=== PATIENT | female | born 1980 | race Caucasian/White ===

== ENCOUNTER 2017-03-11 19:19 | Emergency (ER) | payer OTHER ==
[~2017-03-11] VITALS: Ht 170.2 cm; Wt 105.5 kg
[2017-03-11 19:21] VITALS: BP 129/78; PULSE 82; RESP 16; TEMP 98.9; O2SAT 99
[2017-03-11] MEDS ORDERED: SODIUM CHLOR 0.9% 1000 ML INJ 1,000 ML IV SCH (20:12)
[2017-03-11] MEDS ORDERED: ONDANSETRON HCL 4 MG/2 ML VIAL IVP ONE (20:15)
[2017-03-11] MEDS ORDERED: SODIUM CHLORIDE 0.9% FLUSH 10 ML FLUSH IV FLUSH PRN (20:15)
[2017-03-11 20:18] VITALS: O2SAT 99
--- NOTE | 2017-03-11 20:18 | PD ---
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 Oliveros. She presents for evaluation. For the past 3 days she has had general malaise, chills, nausea, dizziness and low- grade fever. Maximum temperature that she was able to record was 100.3 temporally. Symptoms have persisted which prompted evaluation today. She denies any headache, rash, chest pain or shortness of breath, cough or congestion, sore throat, ear pain, abdominal pain, diarrhea or constipation. She reports a past medical history of ulcerative colitis and anxiety. She has no other complaints at this time. [facility] Past Medical History Cardiovascular Problems: Yes (pericarditis at 14 years old) ?: Social History Alcohol Use: No Tobacco Use: No Allergies-Medications (Allergen,Severity, Reaction): Coded Allergies: Soma (Verified Allergy, Severe, 03/11/17) Reported Meds & Prescriptions Reported Meds & Active Scripts Active Zofran (Ondansetron HCl) 4 Mg Tab 4 Mg PO Q6HR PRN Keflex (Cephalexin) 500 Mg Cap 500 Mg PO Q12H 7 Days Reported Zoloft (Sertraline HCl) 100 Mg Tab 100 Mg PO DAILY Review of Systems Except as stated in HPI: all other systems reviewed are Neg Physical Exam Narrative GENERAL: Well-developed well-nourished female in no acute distress SKIN: Warm and dry. HEAD: Atraumatic. Normocephalic. EYES: Pupils equal and round. No scleral icterus. No injection or drainage. ENT: No nasal bleeding or discharge. Mucous membranes pink and moist. Tympanic hemorrhage appear normal. There is no oral pharyngeal erythema or exudate. NECK: Trachea midline. No JVD. No lymphadenopathy. Neck supple full range of motion. CARDIOVASCULAR: Regular rate and rhythm. No murmur appreciated. RESPIRATORY: No accessory muscle use. Clear to auscultation. Breath sounds equal bilaterally. GASTROINTESTINAL: Abdomen soft, non-tender, nondistended. Hepatic and splenic margins not palpable. MUSCULOSKELETAL: No obvious deformities. No clubbing. No cyanosis. No edema. NEUROLOGICAL: Awake and alert. No obvious cranial nerve deficits. Motor grossly within normal limits. Normal speech. PSYCHIATRIC: Appropriate mood and affect; insight and judgment normal. Data Data Last Documented VS Vital Signs Date Time Temp Pulse Resp B/P Pulse Ox O2 Delivery O2 Flow Rate FiO2 03/11/17 20:18 84 18 79 Room Air 03/11/17 19:21 98.9 129/78 Orders Complete Blood Count With Diff (03/11/17 20:12) Comprehensive Metabolic Panel (03/11/17 20:12) Urinalysis - C+S If Indicated (03/11/17 20:12) Iv Access Insert/Monitor (03/11/17 20:12) Ecg Monitoring (03/11/17 20:12) Oximetry (03/11/17 20:12) Ondansetron Inj (Zofran Inj) (03/11/17 20:15) Sodium Chlor 0.9% 1000 Ml Inj (Ns 1000 M (03/11/17 20:12) Sodium Chloride 0.9% Flush (Ns Flush) (03/11/17 20:15) Electrocardiogram (03/11/17 20:12) Chest, Single Ap (03/11/17 20:12) Influenzae A/B Antigen (03/11/17 20:12) Heart Tones (03/11/17 20:21) Labs Laboratory Tests Test 03/11/17 03/11/17 20:30 20:42 White Blood Count 7.7 TH/MM3 Red Blood Count 4.22 MIL/MM3 Hemoglobin 13.1 GM/DL Hematocrit 38.1 % Mean Corpuscular Volume 90.1 FL Mean Corpuscular Hemoglobin 31.0 PG Mean Corpuscular Hemoglobin 34.4 % Concent Red Cell Distribution Width 12.6 % Platelet Count 301 TH/MM3 Mean Platelet Volume 6.9 FL Neutrophils (%) (Auto) 65.8 % Lymphocytes (%) (Auto) 25.4 % Monocytes (%) (Auto) 5.4 % Eosinophils (%) (Auto) 3.1 % Basophils (%) (Auto) 0.3 % Neutrophils # (Auto) 5.0 TH/MM3 Lymphocytes # (Auto) 2.0 TH/MM3 Monocytes # (Auto) 0.4 TH/MM3 Eosinophils # (Auto) 0.2 TH/MM3 Basophils # (Auto) 0.0 TH/MM3 CBC Comment DIFF FINAL Differential Comment Sodium Level 137 MEQ/L Potassium Level 3.5 MEQ/L Chloride Level 104 MEQ/L Carbon Dioxide Level 24.6 MEQ/L Anion Gap 8 MEQ/L Blood Urea Nitrogen 7 MG/DL Creatinine 0.76 MG/DL Estimat Glomerular Filtration 86 ML/MIN Rate Random Glucose 109 MG/DL Calcium Level 8.8 MG/DL Total Bilirubin 0.2 MG/DL Aspartate Amino Transf 13 U/L (AST/SGOT) Alanine Aminotransferase 22 U/L (ALT/SGPT) Alkaline Phosphatase 52 U/L Total Protein 7.0 GM/DL Albumin 3.3 GM/DL Urine Color YELLOW Urine Turbidity HAZY Urine pH 6.0 Urine Specific [place] 1.011 Urine Protein NEG mg/dL Urine Glucose (UA) NEG mg/dL Urine Ketones NEG mg/dL Urine Occult Blood NEG Urine Nitrite NEG Urine Bilirubin NEG Urine Urobilinogen LESS THAN 2.0 MG/DL Urine Leukocyte Esterase SMALL Urine RBC 3 /hpf Urine WBC 3 /hpf Urine Squamous Epithelial 3 /hpf Cells Urine Amorphous Sediment RARE Urine Bacteria RARE /hpf Urine Mucus FEW /lpf Microscopic Urinalysis Comment CULT NOT INDICATED MDM Medical Decision Making Medical Screen Exam Complete: Yes Emergency Medical Condition: Yes Medical Record Reviewed: Yes Differential Diagnosis UTI, occult pneumonia, viral syndrome, influenza, meningitis, dehydration, electrolyte abnormality, hypoglycemia, symptomatic anemia Narrative Course 36 year old female who is 10 weeks is as for evaluation of 3 days of generalized malaise, nausea, dizziness, low-grade fevers with a maximum temperature 100.3. On initial examination she appears well, her vital signs are stable. There are no significant physical examination findings. Plan is for basic lab work, chest x-ray, influenza antigen, urinalysis. She'll be provided IV fluids and Zofran. The patient's lab work and imaging studies are reassuring. Chest x-ray reveals no evidence of pneumonia. Influenza antigen is negative. Urinalysis reveals small leukocytes, rare bacteria. Given her , she will be treated for bacteriuria with Keflex. Upon reexamination she does feel improved, her nausea resolved after the administration of Zofran. I suspect that her symptoms are related to a viral syndrome. She will be discharged with a short course of Zofran help with nausea. Diagnosis Primary Impression: Viral syndrome Additional Impression: Asymptomatic bacteriuria Additional Instructions: Medication as prescribed. Stay well hydrated and well-nourished, get plenty of rest. Follow-up with your primary care physician and decorating and assembly supervisor. Return for any acutely new or worsening symptoms. Med/Other Pt SpecificInfo: Prescription(s) given Scripts Ondansetron (Zofran)4 Mg Tab4 Mg PO Q6HR PRN (NAUSEA OR VOMITING) #15 TAB Ref 0 Prov:Lucho Pace MD 03/11/17 Cephalexin (Keflex)500 Mg Dfa226 Mg PO Q12H 7 Days Ref 0 Prov:Lucho Pace MD 03/11/17 Disposition: 01 DISCHARGE HOME Condition: Stable Garfield Marmolejo Mar 11, 2017 20:18
[2017-03-11] MEDS ORDERED: ZOLO100T PO (20:27)
--- NOTE | 2017-03-11 20:37 | RADRPT ---
EXAM DATE/TIME: 03/11/2017 20:10 [facility] COMPARISON: No previous studies available for comparison. INDICATIONS : Chest pain. MEDICAL HISTORY : None. SURGICAL HISTORY : None. ENCOUNTER: Initial ACUITY: 1 day PAIN SCORE: 0/10 LOCATION: Bilateral chest FINDINGS: A single view of the chest demonstrates the lungs to be symmetrically aerated without evidence of mas s, infiltrate or effusion. The heart is prominent suggesting left ventricular enlargement. Osseous structures are intact. CONCLUSION: The lungs are clear. Possible left ventricular enlargement. Elias Loyd MD on March 11, 2017 at 20:35 Board Certified Radiologist. This report was verified electronically.
[2017-03-11 20:49] LABS: BASOPHIL % 0.3 % (0.0-2.0); EOSINOPHIL # 0.2 TH/MM3 (0-0.4); EOSINOPHIL % 3.1 % (0.0-4.0); HEMATOCRIT 38.1 % (35.0-46.0); HEMO FLAGS DIFF FINAL; LYMPH % 25.4 % (9.0-44.0); MEAN CELL VOLUME 90.1 FL (80.0-100.0); MEAN CORPUSCULAR HGB CONC 34.4 % (32.0-36.0); MONO % 5.4 % (0.0-8.0); NEUT % 65.8 % (16.0-70.0); PLATELET COUNT 301 TH/MM3 (150-450); RED BLOOD COUNT 4.22 MIL/MM3 (4.00-5.30); RED CELL DISTRIBUTION WIDTH 12.6 % (11.6-17.2); WHITE BLOOD COUNT 7.7 TH/MM3 (4.0-11.0)
[2017-03-11 21:11] LABS: BACTERIA, URINE RARE /hpf; BLOOD, URINE NEG (NEG); COMMENT (UR) CULT NOT INDICATED; CULTURE IF INDICATED CULT NOT INDICATED; GLUCOSE,URINE NEG (NEG); KETONE, URINE NEG (NEG); MUCUS URINE FEW /lpf (OCC); NITRITE,URINE NEG (NEG); SQUAMOUS EPITHELIAL CELL URINE 3 /hpf (0-5); URINE COLOR YELLOW (YELLW/STRAW)
[2017-03-11 21:12] LABS: ANION GAP 8 MEQ/L (5-15); AST (GOT) 13 U/L (15-37); BICARBONATE 24.6 MEQ/L (21.0-32.0); BLOOD UREA NITROGEN 7 MG/DL (7-18); CHLORIDE 104 MEQ/L (98-107); GLOMERULAR FILTRATION RATE 86 ML/MIN (>89); POTASSIUM 3.5 MEQ/L (3.5-5.1); SODIUM (NA) 137 MEQ/L (136-145)
[2017-03-11 21:13] LABS: ALT (GPT) 22 U/L (10-53)
[2017-03-11 21:15] LABS: ALKALINE PHOSPHATASE 52 U/L (45-117); TOTAL BILIRUBIN ADULT 0.2 MG/DL (0.2-1.0)
[2017-03-11] MEDS ORDERED: ZOFR4TAB PO (21:22)
[2017-03-11] MEDS ORDERED: CEPH-460 PO (21:22)
[2017-03-11 22:45] VITALS: BP 123/63; PULSE 68; RESP 18; TEMP 98.1; O2SAT 100
--- NOTE | 2017-03-12 14:13 | EKG ---
Date Performed: 03/11/2017 Time Performed: 20:31:53 PTAGE: 36 years EKG: Sinus rhythm INCOMPLETE RIGHT BUNDLE BRANCH BLOCK BORDERLINE ECG Compared to prior tracing no significant change PREVIOUS TRACING : 10/25/2003 22.20 DOCTOR: Qamar Macedo Interpretating Date/Time 03/12/2017 14:10:44
[2017-03-21] MEDS ORDERED: OXYC1TAB63 PO (12:32)
[2017-03-21] MEDS ORDERED: DIAZ5 PO (12:37)
== END 2017-03-11 22:47 | disposition home or self-care (01) ==
LOC: NEPC 19:19
DX: O99.89 Other specified diseases and conditions complicating pregnancy, childbirth and the puerperium (principal); B34.9 Viral infection, unspecified; R82.71 Bacteriuria; R53.81 Other malaise; R11.0 Nausea; R42 Dizziness and giddiness; R50.9 Fever, unspecified; R94.31 Abnormal electrocardiogram [ECG] [EKG]; Z87.19 Personal history of other diseases of the digestive system; Z86.59 Personal history of other mental and behavioral disorders; Z3A.10 10 weeks gestation of pregnancy
CPT/HCPCS: 71010; 80053; 81001; 85025; 87804; 93005; 96374; 99285; J2405; J7030

== ENCOUNTER → 2017-03-21 | Day surgery (SDC) | payer OTHER ==
[~2017-03-21] VITALS: Ht 170.2 cm; Wt 104.3 kg
[~2017-03-21] MED LIST: *morphine SULFATE 8 MG/ML PERIprocedure ONLY ONE; ACETAMINOPHEN 1000 MG/100 ML VIAL IV ONE; CEPH-460 PO; CHLORHEXIDINE GLUCONATE 2 % 1 PACK (2 CLOTHS) TOPICAL PRN; DIAZ5 PO; DO NOT ADM ANY ANTICOAGULANT DRUGS PRN; FAMOTIDINE 20 MG/2 ML VIAL ONE; INSULIN HUMAN REGULAR 1,000 UNITS/10 ML VIAL SQ PRN; KETOROLAC TROMETHAMINE 60 MG/2 ML (IM) VIAL IM ONE; LACTATED RINGER'S 1000 ML IV PRN; LORazepam 2 MG/ML VIAL IV ONE; LORazepam 2 MG/ML VIAL ONE; METOPROLOL TARTRATE 25 MG TAB PO PRN; MIDAZOLAM HCL 2 MG/2 ML VIAL ONE; ONDANSETRON HCL 4 MG/2 ML VIAL IV PUSH ONE; OXYC1TAB63 PO; OXYTOCIN 10 UNIT/ML AMP ONE; POVIDONE IODINE 5% (ANTISEPSIS KIT) 4 APPLICATIONS EACH NARE PRN; PROPOFOL 200 MG/20 ML AMP IV ONE; SODIUM CHLORID 0.9% 500 ML IV PRN; ZOFR4TAB PO; ZOLO100T PO; oxyCODONE/ACETAMINOPHEN 5 MG/325 MG TAB PO PRN
[2017-03-21 09:39] VITALS: BP 140/79; PULSE 86; RESP 18; TEMP 98.1; O2SAT 97
[2017-03-21 10:10] LABS: AUTOMATED NEUTROPHIL # 4.6 TH/MM3 (1.8-7.7); BASOPHIL % 0.2 % (0.0-2.0); EOSINOPHIL # 0.2 TH/MM3 (0-0.4); EOSINOPHIL % 3.2 % (0.0-4.0); HEMATOCRIT 38.2 % (35.0-46.0); HEMO FLAGS DIFF FINAL; LYMPH % 21.4 % (9.0-44.0); LYMPHOCYTE # 1.4 TH/MM3 (1.0-4.8); MEAN CELL VOLUME 89.3 FL (80.0-100.0); MEAN CORPUSCULAR HEMOGLOBIN 30.9 PG (27.0-34.0); MEAN CORPUSCULAR HGB CONC 34.6 % (32.0-36.0); MONO % 5.6 % (0.0-8.0); NEUT % 69.6 % (16.0-70.0); PLATELET COUNT 280 TH/MM3 (150-450); RED BLOOD COUNT 4.27 MIL/MM3 (4.00-5.30); RED CELL DISTRIBUTION WIDTH 12.9 % (11.6-17.2); WHITE BLOOD COUNT 6.7 TH/MM3 (4.0-11.0)
--- NOTE | 2017-03-21 12:26 | PD.OP ---
Operative Report Date of Surgery: Mar 21, 2017 Preoperative Diagnosis: (1) Missed Postoperative Diagnosis: (1) Missed D&C with suction Procedure: D&C with suction Anesthesia: general Payne Surgeon: Jose Oliveros Factory Engineer(s): Jose Collins MD Mar 21, 2017 12:26
--- NOTE | 2017-03-21 12:32 | HHI.DCPOC ---
Discharge Care Plan Diagnosis: (1) Missed Report Symptoms to Your Doctor -Temperature above 100.5 degrees -Redness, of incision or excessive or foul smelling drainage -Unusual pain or calf pain -Increased vaginal bleeding -Painful or difficulty urinating -Feelings of extreme sadness or anxiety after 2 weeks Goals to Promote Your Health * To prevent worsening of your condition and complications * To maintain your health at the optimal level Directions to Meet Your Goals Take your medications as prescribed Follow your dietary instruction Follow activity as directed Ensure plenty of rest for recovery Drink fluids for hydration Keep your appointments as scheduled Take your immunizations and boosters as scheduled If your symptoms worsen call your PCP, if no PCP go to Urgent Care Center or Emergency Room Smoking is Dangerous to Your Health. Avoid second hand smoke Call the 24-hour crisis hotline for domestic abuse at Jose Oliveros MD Mar 21, 2017 12:32
[2017-03-21 14:18] VITALS: BP 111/61; PULSE 87; RESP 20; TEMP 98; O2SAT 97
--- NOTE | 2017-03-23 12:32 | MP ---
cc: BRIAN DIXON DATE OF SURGERY: 03/21/2017 PROCEDURE Dilatation and curettage, suction curette. PREOPERATIVE DIAGNOSIS Missed . POSTOPERATIVE DIAGNOSIS Missed . ESTIMATED BLOOD LOSS 200 ccs. COMPLICATIONS None. FINDINGS Products of conception in a 10-week size uterus. No adnexal masses. PROCEDURE IN DETAIL After informed consent, the patient was taken to the operating room where she was placed under epidural anesthesia, placed in the supine position, legs in the candy-cane stirrups. The abdomen, perineum and vagina were prepped and draped in normal sterile fashion. Time-out was taken for D&C with suction, correct patient and operative site was confirmed. After that a speculum was placed in the vagina. Cervix was grasped with single-tooth tenaculum, it was already dilated, had to be dilated just slightly from 6 mm to 8 mm to accommodate a 8-mm curette. We then suctioned all products of conception. Sharp curette was passed in all four quadrants until there was no remaining products of conception on the uterine bermudez and the suction curette was passed one last time. The patient tolerated the procedure well. She was taken to the recovery room in stable condition. Lap and instrument counts were reported as correct. The pathologist will save any tissue left over after processing to confirm intrauterine and that will be sent to the home per the patient's request. MD EFRA Boyle/EYAL /12:27 PM /12:21 PM
== END | disposition home or self-care (01) ==
LOC: HSDC 08:54
PROVIDERS: ATTEND Obstetrics & Gynecology
DX: O02.1 Missed abortion (principal)
CPT/HCPCS: 01965; 59820; 85025; 88305; J0131; J1885; J2250; J2270; J2405; J3010; J7120; J2060; J2590

== ENCOUNTER 2018-09-25 17:11 | Inpatient (IN) ==
[2018-09-25] MEDS ORDERED: Sod Chloride 0.9% Inj 1,000 ML IV.CONT PRN (18:20)
[2018-09-25] MEDS ORDERED: Sodium Chlor 0.9% Inj 500 ML IV.SIG PRN (18:20)
[2018-09-25] MEDS ORDERED: Naloxone Inj 0.4 MG/ML Vial IV.PUSH PRN (18:20)
[2018-09-25] MEDS ORDERED: Oxytocin 30 Units/500ml Premix 30 UNITS/500 ML BAG IV.SIG ONE (18:20)
[2018-09-25] MEDS ORDERED: Citric Acid/Sodium Citrate Liq 30 ML UDC PO SCH (18:30)
--- NOTE | 2018-09-25 18:31 | P.HPOB ---
History of Present Illness Primary Care Physician: No Primary Care Physician Chief Complaint: induction for oligo History of Present Illness: 38-year-old at 37 weeks and 5 days by her LMP consistent with a 8-week ultrasound with estimated due date of 10/11/2018. She is here as an induction for new finding of oligohydramnios, she was seen in outpatient setting today for routine OB visit during ultrasound to confirm position she was found to have oligohydramnios with an KENDRICK of 2.9 cm no MVP greater than 2. She was doing well, no complaints of contractions, headache, blurred vision or epigastric pain, she has reported increased blood pressures at home sometimes into the severe range of the 160 systolic, but he has never been confirmed as an outpatient. She has no history of hypertension outside of . Her has been complicated by advanced maternal age, normal anatomy and negative second trimester screening, anxiety, ulcerative colitis, tobacco use, obesity, migraines, reflux, and history of pericarditis at the age of 14. 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 - February 2003: Term at [place] weight 6.6 pounds. - November 2004: Term , and [place], weight 7.7 pounds - Inpatient Certification I certify that the inpatient services were ordered in accordance with Medicare regulations governing the order. This includes certification that hospital inpatient services are reasonable and necessary and in the case of services not specified as inpatient-only under 42 CFR 419.22(n), that they are appropriately provided as inpatient services in accordance to with the 2-midnight benchmark under 43 CFR 412.3(e) Estimated Total Length of Stay (Days): 3 Plans for Post Hospital Care: Home [facility] - History History Provided By: Patient - Medical History Medical History: Medical History (Last Reviewed 08/12/18 @ 15:19 by NITO Aguillon) Patient denies medical problems - Surgical History Surgical History: Surgical History (Last Reviewed 08/12/18 @ 15:19 by NITO Aguillon) No history of previous surgery - Tobacco History Second Hand Smoke Exposure: No Smoking Status: Never smoker Tobacco Type: Cigarettes - Alcohol History How Often Do You Have a Drink Containing Alcohol: Never - Substance Use History Substance History: No History of Abuse - Travel History History of Recent Travel: No Recent Travel in the [place] Within the Last 8 Weeks: No Recent Travel Out of the Country Within the Last 8 Weeks: No - Immunization History Hx Influenza Vaccine This Season: No Medications and Allergies Active Medications: Active Medications Calcium Gluconate (Calcium Gluconate Inj) 1 gm IV.PUSH PRN PRN PRN Reason: Magnesium toxicity Citric Acid/Sodium Citrate (Sodium Citrate/Citric Acid Liq) 30 ml PO SHINGLE INSPECTOR SURESH Stop: 09/29/18 18:29 Dinoprostone (Cervidil Vag Insert) 10 mg VAGINAL ONCE ONE Stop: 09/25/18 18:21 Fentanyl Citrate (Fentanyl Inj) 50 mcg IV.PUSH Q1H PRN PRN Reason: Pain Scale 3 - 5 Fentanyl Citrate (Fentanyl Inj) 100 mcg IV.PUSH Q1H PRN PRN Reason: PAIN SCALE 6 TO 10 Lactated Ringer's (Lr 1000 Ml Inj) 1,000 mls @ 3,000 mls/hr IV.SIG UNSCH PRN PRN Reason: compromise or epidural Sodium Chloride (Ns Inj) 500 mls @ 1,000 mls/hr IV.SIG UNSCH PRN PRN Reason: SEE LABEL COMMENTS Sodium Chloride (Ns Inj) 1,000 mls @ 100 mls/hr IV.CONT .Q10H PRN PRN Reason: SEE LABEL COMMENTS Oxytocin (Pitocin 30 Units/Ns 500 Ml Premix) 30 units in 500 mls @ 999 mls/hr IV.SIG BOLUS ONE Stop: 09/25/18 18:50 Lidocaine HCl (Xylocaine 1% Inj) 0.1 ml I-DERMAL PRN PRN PRN Reason: For IV start Stop: 09/28/18 18:19 Lidocaine HCl (Xylocaine 1% Inj) 10 ml INFILTRATN PRN PRN PRN Reason: For episiotomy repair Stop: 09/27/18 18:19 Mineral Oil (Muri-Lube Oil) 10 ml TOPICAL PRN PRN PRN Reason: PRN perineal massage Naloxone HCl (Narcan Inj) 0.1 mg IV.PUSH Q2M PRN PRN Reason: for opiate reversal Ondansetron HCl (Zofran Inj) 4 mg IV.PUSH Q6H PRN PRN Reason: NAUSEA OR VOMITING Sodium Chloride (Ns Flush) 2 ml IV.FLUSH BID SURESH Sodium Chloride (Ns Flush) 2 ml IV.FLUSH PRN PRN PRN Reason: FLUSH AFTER USING IV ACCESS Sodium Chloride (Ns Flush) 2 ml IV.FLUSH BID SURESH Sodium Chloride (Ns Flush) 2 ml IV.FLUSH PRN PRN PRN Reason: FLUSH AFTER USING IV ACCESS Allergies Allergy/AdvReac Type Severity Reaction Status Date / Time No Known Allergies Allergy Verified 09/25/18 18:25 Home Medications Medication Instructions Recorded Confirmed Type omeprazole 40 mg PO DAILY 09/25/18 09/25/18 History sertraline 100 mg PO DAILY 09/25/18 09/25/18 History Exam Vital signs: Vital Signs 09/25/18 17:28 Temperature 98.6 F Pulse Rate 109 H Respiratory Rate 18 Blood Pressure 126/91 H Intake & Output 09/24/18 09/25/18 09/25/18 18:59 06:59 18:59 Weight 101.151 kg Other: Weight On Admission 101.151 kg - Constitutional no acute distress - Routine HEENT Exam Head: Present: normocephalic Eye: Present: EOMI - Routine Neck Exam Present: supple - Routine Respiratory Exam Present: CTA bilaterally - Routine Cardiovascular Exam Present: RRR - Routine Abdominal Exam Present: soft - Routine Exam Comments: Normal external female genitalia, cervix 1-1.5 negative tomorrow cm, thick, -3 , posterior, medium - Routine Extremities Exam Present: full ROM - Routine Neurological Exam Present: oriented X3 - Additional findings Additional findings: heart rate, 130s-140s, moderate variability, no accelerations present, no decelerations Tocometry: Contractions appreciated. Results - Labs CBC & Chem 7: 09/25/18 17:35 09/25/18 17:35 Caprini VTE Risk Assessment Caprini VTE Risk Assessment: No/Low Risk (score <= 1) Caprini Risk Assessment Model: Point Value = 1 Point Value = 2 Point Value = 3 Point Value = 5 Age 41-60 Minor surgery BMI > 25 kg/m2 Swollen legs Varicose veins or History of unexplained or recurrent spontaneous Oral contraceptives or hormone replacement Sepsis (< 1 month) Serious lung disease, including pneumonia (< 1 month) Abnormal pulmonary function Acute myocardial infarction Congestive heart failure (< 1 month) History of inflammatory bowel disease Medical patient at bed rest Age 61-74 Arthroscopic surgery Major open surgery (> 45 min) Laparoscopic surgery (> 45 min) Malignancy Confined to bed (> 72 hours) Immobilizing plaster cast Central venous access Age >= 75 History of VTE Family history of VTE Factor V Leiden Prothrombin [id number] Lupus anticoagulant Anticardiolipin antibodies Elevated serum homocysteine Heparin-induced thrombocytopenia Other congenital or acquired thrombophilia Stroke (< 1 month) Elective arthroplasty Hip, pelvis, or leg fracture Acute spinal cord injury (< 1 month) Prophylaxis Regimen: Total Risk Factor Score Risk Level Prophylaxis Regimen 0-1 Low Early ambulation 2 Moderate Order ONE of the following: *Sequential Compression Device (SCD) *Heparin 5000 units SQ BID 3-4 Higher Order ONE of the following medications: *Heparin 5000 units SQ TID *Enoxaparin/Lovenox 40 mg SQ daily (WT < 150 kg, CrCl > 30 mL/min) *Enoxaparin/Lovenox 30 mg SQ daily (WT < 150 kg, CrCl > 10-29 mL/min) *Enoxaparin/Lovenox 30 mg SQ BID (WT < 150 kg, CrCl > 30 mL/min) AND/OR *Sequential Compression Device (SCD) 5 or more Highest Order ONE of the following medications: *Heparin 5000 units SQ TID (Preferred with Epidurals) *Enoxaparin/Lovenox 40 mg SQ daily (WT < 150 kg, CrCl > 30 mL/min) *Enoxaparin/Lovenox 30 mg SQ daily (WT < 150 kg, CrCl > 10-29 mL/min) *Enoxaparin/Lovenox 30 mg SQ BID (WT < 150 kg, CrCl > 30 mL/min) AND *Sequential Compression Device (SCD) Assessment and Plan - Plan 38-year-old at 37 weeks and 5 days by Neelam/Danielle (FRANCISCO 10/11/18) admitted for induction of labor secondary to new finding of oligohydramnios 1. Intrauterine : Category 1 tracing, continuous monitoring -Female "[place]", posterior placenta, estimated weight from ultrasound today 2735 g in the 27th percentile, abdominal circumference 6.5%, vertex via ultrasound. 2. Induction of labor: Secondary to #3. Montoya score unfavorable, nursing to place Place Cervidil, will allow to eat if reassuring tracing. Will remove Cervidil at after 112 hours or earlier if needed - GBS unknown, rapid GBS to be collected by nursing, Abx for ppx as indicated 3. Oligohydramnios: Likely due to placental insufficiency possible preeclampsia versus gestational hypertension, KENDRICK of 2.9 cm today. 4. Elevated blood pressures: No signs or symptoms of preeclampsia, will collect HELLP labs and urine protein creatinine ratio. Trend blood pressures, treat severe ranges and mag for any severe features. 5. Advanced maternal age: Quad screen negative, normal anatomy 6. Anxiety: Controlled with sertraline, continue home meds 7. Ulcerative colitis: Controlled without medications 8. Tobacco use: Encouraged cessation throughout her 9. History of pericarditis at the age of 14, status post pericardial window at that time, has no long-term sequelae from this 10. Obesity: Passed her 1 hour Glucola normal growth today.
[2018-09-25 18:40] LABS: Baso % (Auto) 0.2 % (0.0-2.0); Eos # (Auto) 0.1 th/mm3 (0.0-0.4); Eos % (Auto) 1.1 % (0.0-4.0); Hematocrit 41.5 % (35.0-46.0); Hemoglobin 14.6 gm/dL (11.6-15.3); Lymph # (Auto) 2.1 th/mm3 (1.0-4.8); Lymph % (Auto) 21.3 % (9.0-44.0); Mean Corpuscular HGB Conc 35.1 % (32.0-36.0); Mean Corpuscular Hemoglobin 31.5 pg (27.0-34.0); Mean Corpuscular Volume 89.8 fL (80.0-100.0); Mono # (Auto) 0.5 th/mm3 (0.0-0.9); Mono % (Auto) 5.2 % (0.0-8.0); Neut # (Auto) 7.2 th/mm3 (1.8-7.7); Neut % (Auto) 72.2 % (16.0-70.0); Platelet Count 294 th/mm3 (150-450); Red Blood Count 4.62 mil/mm3 (4.00-5.30); Red Cell Distribution Width 13.6 % (11.6-17.2)
[2018-09-25 18:44] LABS: Bacteria,Urine Rare /hpf; Bilirubin,Urine Negative (Negative); Clarity,Urine Clear (Clear); Color,Urine Yellow (Yellw/Straw); Glucose,Urine (UA) Negative (Negative); Leukocyte Esterase,Urine Negative (Negative); Nitrite,Urine Negative (Negative); Specific Gravity,Urine 1.006 (1.002-1.035)
[2018-09-25] MEDS ORDERED: fentaNYL Citrate Inj 100 MCG/2 ML Ampul IV.PUSH PRN (18:45)
[2018-09-25 18:48] LABS: Protein/Creatinine Ratio,Urine 0.23 (0.00-0.14); Total Protein,Urine Random 13.2 mg/dL (0-11.8)
[2018-09-25 19:02] LABS: Albumin 2.8 g/dL (3.4-5.0); Anion Gap 9 meq/L (5-15); Aspartate Aminotransferase 12 U/L (15-37); Blood Urea Nitrogen 8 mg/dL (7-18); Carbon Dioxide 21.7 meq/L (21.0-32.0); Chloride 106 meq/L (98-107); Glomerular Filtration Rate Greater Than 89 mL/min (>89); Glucose,Random 74 mg/dL (74-106); Sodium 137 meq/L (136-145)
[2018-09-25 19:04] LABS: Alanine Aminotransferase 17 U/L (10-53); Alkaline Phosphatase 182 U/L (45-117); Total Protein 7.1 g/dL (6.4-8.2)
[2018-09-26] MEDS: fentaNYL Citrate Inj 100 MCG/2 ML Ampul IV.PUSH PRN ×2 (00:23→03:10)
--- NOTE | 2018-09-26 09:59 | P.OBLABOR ---
Subjective Interval history: quiet night comfortable no leakage or bleeding GFM Objective Vital Signs: Vital Signs - 8 hr 09/26/18 02:30 09/26/18 03:30 09/26/18 04:15 Temperature Pulse Rate 74 79 Respiratory Rate 16 16 Blood Pressure 132/86 09/26/18 04:20 09/26/18 04:50 09/26/18 05:15 Temperature Pulse Rate 82 86 Respiratory Rate 16 16 Blood Pressure 09/26/18 05:20 09/26/18 05:45 09/26/18 05:50 Temperature 98.0 F 98.5 F Pulse Rate 81 Respiratory Rate 16 Blood Pressure 09/26/18 05:56 09/26/18 06:15 09/26/18 06:16 Temperature Pulse Rate 86 92 H Respiratory Rate 16 Blood Pressure 122/72 09/26/18 06:46 09/26/18 08:20 Temperature Pulse Rate 79 Respiratory Rate 16 18 Blood Pressure Objective: Pelvic Exam: strip category one /-1 ABIDA pelvis proven Patient Started Active Labor: Yes Medical Induction of Labor: Yes Artificial Rupture of Membrane: Yes Artificial ROM Date: 09/26/18 Artificial ROM Time: 09:58 Assessment and Plan - Plan 38-year-old at 37 weeks and 5 days by L/Danielle (FRANCISCO 10/11/18) admitted for induction of labor secondary to new finding of oligohydramnios 1. Intrauterine : Category 1 tracing, continuous monitoring -Female "[place]", posterior placenta, estimated weight from ultrasound today 2735 g in the 27th percentile, abdominal circumference 6.5%, vertex via ultrasound. 2. Induction of labor: Secondary to #3. Montoya score unfavorable, nursing to place Place Cervidil, will allow to eat if reassuring tracing. Will remove Cervidil at after 112 hours or earlier if needed - GBS unknown, rapid GBS to be collected by nursing, Abx for ppx as indicated 3. Oligohydramnios: Likely due to placental insufficiency possible preeclampsia versus gestational hypertension, KENDRICK of 2.9 cm today. 4. Elevated blood pressures: No signs or symptoms of preeclampsia, will collect HELLP labs and urine protein creatinine ratio. Trend blood pressures, treat severe ranges and mag for any severe features. 5. Advanced maternal age: Quad screen negative, normal anatomy 6. Anxiety: Controlled with sertraline, continue home meds 7. Ulcerative colitis: Controlled without medications 8. Tobacco use: Encouraged cessation throughout her 9. History of pericarditis at the age of 14, status post pericardial window at that time, has no long-term sequelae from this 10. Obesity: Passed her 1 hour Glucola normal growth today. 09/26/18 anticipate augment and epidural prn
[2018-09-26] MEDS ORDERED: fentaNYL 2MCG-Bupiv 0.125% Epi 150 ML EPIDURAL ONE (10:43)
[2018-09-26] MEDS: Sertraline 100 MG Tablet PO SCH (11:56)
[2018-09-26] MEDS ORDERED: fentaNYL 2MCG-Bupiv 0.125% Epi 150 ML EPIDURAL PRN (12:00)
[2018-09-26] MEDS ORDERED: Sodium Chlor 0.9% Inj 10 ML ONE (12:24)
[2018-09-26] MEDS ORDERED: Lidocaine PF 1% Inj 5 ML Vial ONE (12:24)
[2018-09-26] MEDS ORDERED: Oxytocin 30 Units/500ml Premix 30 UNITS/500 ML BAG IV.SIG PRN (12:39)
[2018-09-26] MEDS ORDERED: fentaNYL Citrate Inj 100 MCG/2 ML Ampul EPIDURAL ONE (13:00)
--- NOTE | 2018-09-26 15:02 | P.OBDELI ---
Patient Started Active Labor: Yes Medical Induction of Labor: Yes Artificial Rupture of Membrane: Yes Anesthesia: Epidural Episiotomy: none Vaginal Delivery: Normal Presentation: Occiput anterior Nuchal Cord: x1 Delayed Cord Clamping (45 sec): Yes Placenta: Spontaneous delivery, Intact, 3 vessel cord Laceration: None Estimated blood loss (mL): 200 : Female Infant Female A Infant Delivery Date: 09/26/18 Delivery Time: 15:02 score (1 min): 7 score (5 min): 9
[2018-09-26] MEDS ORDERED: Oxytocin 30 Units/500ml Premix 30 UNITS/500 ML BAG IV.CONT PRN (15:03)
[2018-09-26] MEDS ORDERED: Zolpidem Tartrate 5 MG Tablet PO PRN (15:03)
[2018-09-26] MEDS ORDERED: Witch Hazel 50%/Glyderin 12.5% 40 Pad Jar RECTAL PRN (15:03)
[2018-09-26] MEDS ORDERED: Naloxone Inj 0.4 MG/ML Vial IV.PUSH PRN (15:03)
[2018-09-26] MEDS ORDERED: Bisacodyl 10 MG Supp RECTAL PRN (15:03)
[2018-09-26] MEDS ORDERED: Benzocaine 20% Top Spray 60 ML Can TOPICAL PRN (15:03)
[2018-09-26] MEDS ORDERED: Measles/Mumps/Rubella Vaccine Inj 0.5 ML Vial SQ ONE (16:00)
[2018-09-26] MEDS ORDERED: Diphtheria/Tetanus/Pertussis Vaccine Inj 0.5 ML Syringe IM ONE (16:00)
[2018-09-26] MEDS: Acetaminophen 325 MG Tablet PO PRN (21:06)
[2018-09-26] MEDS: Senna/Docusate Sodium 8.6/50 MG Tablet PO SCH (21:06)
[2018-09-27] MEDS: Acetaminophen 325 MG Tablet PO PRN ×2 (03:16→19:46)
--- NOTE | 2018-09-27 07:50 | P.PNOB ---
Subjective Post day: 1 Interval history: Doing well, ambulating without difficulty, voiding spontaneously, vaginal bleeding less than menses. Objective Vital Signs/I&O: Vital Signs 09/26/18 08:20 09/26/18 10:33 09/26/18 10:34 Temperature 97.5 F L Pulse Rate 108 H Respiratory Rate 18 Blood Pressure 137/98 H 09/26/18 11:07 09/26/18 11:11 09/26/18 11:20 Temperature Pulse Rate 81 75 84 Respiratory Rate Blood Pressure 136/93 H 137/83 139/84 09/26/18 11:26 09/26/18 11:51 09/26/18 12:11 Temperature Pulse Rate 110 H 92 H 91 H Respiratory Rate Blood Pressure 126/101 H 128/72 129/74 09/26/18 12:35 09/26/18 12:46 09/26/18 13:00 Temperature 98.3 F Pulse Rate 79 81 Respiratory Rate 16 Blood Pressure 133/75 131/69 09/26/18 13:01 09/26/18 13:16 09/26/18 13:31 Temperature Pulse Rate 91 H 73 83 Respiratory Rate Blood Pressure 131/79 131/69 125/64 09/26/18 13:45 09/26/18 14:15 09/26/18 14:30 Temperature Pulse Rate 99 H 84 92 H Respiratory Rate Blood Pressure 113/69 129/81 132/90 09/26/18 14:46 09/26/18 14:55 09/26/18 15:01 Temperature Pulse Rate 118 H 90 Respiratory Rate 18 Blood Pressure 137/105 H 139/81 09/26/18 15:10 09/26/18 15:25 09/26/18 15:40 Temperature Pulse Rate Respiratory Rate 17 17 17 Blood Pressure 09/26/18 15:53 09/26/18 18:30 Temperature 98.1 F Pulse Rate 78 Respiratory Rate 17 18 Blood Pressure 138/73 Result Diagrams: 09/25/18 17:35 09/25/18 17:35 Objective Remarks: GENERAL: Well-nourished, well-developed patient. CARDIOVASCULAR: Regular rate and rhythm without murmurs, gallops, or rubs. RESPIRATORY: Breath sounds equal bilaterally. No accessory muscle use. ABDOMEN/GI: Abdomen soft, non-tender. Fundus: Firm, non-tender at umbilicus. GENITOURINARY: Light to moderate bleeding. EXTREMITIES: No cyanosis or edema, non-tender, without signs of DVT. Medications and IVs: Active Medications Acetaminophen (Tylenol) 650 mg PO Q4H PRN PRN Reason: PAIN SCALE 1 TO 2 Last Admin: 09/27/18 03:16 Dose: 650 mg Al Hydroxide/Mg Hydroxide (Milk Of Magnesia Liq) 30 ml PO Q12H PRN PRN Reason: Mild Constipation Benzocaine (Americaine 20% Top [place]) 1 spray TOPICAL Q4H PRN PRN Reason: For Perineum Discomfort Bisacodyl (Dulcolax Supp) 10 mg RECTAL DAILY PRN PRN Reason: SEVERE CONSITIPATION Calcium Gluconate (Calcium Gluconate Inj) 1 gm IV.PUSH PRN PRN PRN Reason: Magnesium toxicity Citric Acid/Sodium Citrate (Sodium Citrate/Citric Acid Liq) 30 ml PO TREATER HELPER [facility] Stop: 09/29/18 18:29 Ephedrine Sulfate (Ephedrine/Ns Syringe) 10 mg IV.PUSH UNSCH PRN PRN Reason: SEE LABEL COMMENTS Stop: 09/27/18 12:00 Fentanyl Citrate (Fentanyl Inj) 50 mcg IV.PUSH Q1H PRN PRN Reason: Pain Scale 3 - 5 Fentanyl Citrate (Fentanyl Inj) 100 mcg IV.PUSH Q1H PRN PRN Reason: PAIN SCALE 6 TO 10 Last Admin: 09/26/18 03:10 Dose: 100 mcg Lactated Ringer's (Lr 1000 Ml Inj) 1,000 mls @ 3,000 mls/hr IV.SIG UNSCH PRN PRN Reason: compromise or epidural Last Admin: 09/26/18 12:52 Dose: 3,000 mls/hr Sodium Chloride (Ns Inj) 500 mls @ 1,000 mls/hr IV.SIG UNSCH PRN PRN Reason: SEE LABEL COMMENTS Sodium Chloride (Ns Inj) 1,000 mls @ 100 mls/hr IV.CONT .Q10H PRN PRN Reason: SEE LABEL COMMENTS Lactated Ringer's (Lr 1000 Ml Inj) 1,000 mls @ 125 mls/hr IV.SIG .Q8H [facility] Last Admin: 09/26/18 06:28 Dose: 125 mls/hr Fentanyl/Bupivacaine/Sodium Chlor (Fentanyl 2 Mcg-Bupiv 0.125% Epi) 150 mls @ 12 mls/hr EPIDURAL PRN PRN PRN Reason: for Labor Pain Last Admin: 09/26/18 12:53 Dose: 12 mls/hr Oxytocin (Pitocin 30 Units/Ns 500 Ml Premix) 30 units in 500 mls @ 2 mls/hr IV.SIG TITRATE PRN; Protocol PRN Reason: For induction of labor Last Admin: 09/26/18 12:52 Dose: 2 milliunit/min, 2 mls/hr Oxytocin (Pitocin 30 Units/Ns 500 Ml Premix) 30 units in 500 mls @ 100 mls/hr IV.CONT UNSCH PRN PRN Reason: Heavy bleeding Ibuprofen (Motrin) 800 mg PO Q8H PRN PRN Reason: For Cramping Last Admin: 09/27/18 03:16 Dose: 800 mg Lactulose (Lactulose Liq) 30 ml PO DAILY PRN PRN Reason: SEVERE CONSITIPATION Lidocaine HCl (Xylocaine 1% Inj) 0.1 ml I-DERMAL PRN PRN PRN Reason: For IV start Stop: 09/28/18 18:19 Lidocaine HCl (Xylocaine 1% Inj) 10 ml INFILTRATN PRN PRN PRN Reason: For episiotomy repair Stop: 09/27/18 18:19 Mineral Oil (Muri-Lube Oil) 10 ml TOPICAL PRN PRN PRN Reason: PRN perineal massage Naloxone HCl (Narcan Inj) 0.1 mg IV.PUSH Q2M PRN PRN Reason: for opiate reversal Naloxone HCl (Narcan Inj) 0.1 mg IV.PUSH Q2M PRN PRN Reason: for opiate reversal Ondansetron HCl (Zofran Inj) 4 mg IV.PUSH Q6H PRN PRN Reason: NAUSEA OR VOMITING Ondansetron HCl (Zofran Odt) 4 mg PO Q6H PRN PRN Reason: NAUSEA OR VOMITING Pantoprazole Sodium (Protonix) 40 mg PO DAILY [facility] Last Admin: 09/26/18 11:56 Dose: Not Given Senna/Docusate Sodium (Cynthia-Colace) 1 tab PO BID [facility] Last Admin: 09/26/18 21:06 Dose: 1 tab Sennosides (Senokot) 17.2 mg PO Q12H PRN PRN Reason: Moderate Constipation Sertraline HCl (Zoloft) 100 mg PO DAILY [facility] Last Admin: 09/26/18 11:56 Dose: Not Given Sodium Chloride (Ns Flush) 2 ml IV.FLUSH BID [facility] Last Admin: 09/26/18 21:07 Dose: 2 ml Sodium Chloride (Ns Flush) 2 ml IV.FLUSH PRN PRN PRN Reason: FLUSH AFTER USING IV ACCESS Sodium Chloride (Ns Flush) 2 ml IV.FLUSH BID [facility] Last Admin: 09/26/18 21:07 Dose: Not Given Sodium Chloride (Ns Flush) 2 ml IV.FLUSH PRN PRN PRN Reason: FLUSH AFTER USING IV ACCESS Witch Megan/Glycerin (Tucks Pads) 1 applicatio RECTAL QID PRN PRN Reason: HEMORRHOIDS Zolpidem Tartrate (Ambien) 5 mg PO HS PRN PRN Reason: SLEEP Assessment and Plan - Plan 38-year-old s/p at 37 weeks and 6 days was IOL for oligohydramnios 1. PPD #1: AF, VSS, ready for d/c home, discussed precautions expectations and follow-up. -Female 2. Anxiety: Controlled with sertraline, continue home meds
[2018-09-27] MEDS: Sertraline 100 MG Tablet PO SCH (08:23)
[2018-09-27] MEDS: Senna/Docusate Sodium 8.6/50 MG Tablet PO SCH (08:23)
[2018-09-28] MEDS: Senna/Docusate Sodium 8.6/50 MG Tablet PO SCH ×2 (03:27→11:54)
[2018-09-28] MEDS: Acetaminophen 325 MG Tablet PO PRN ×2 (03:30→11:53)
--- NOTE | 2018-09-28 05:22 | P.PNOB ---
Subjective Post day: 2 Interval history: no changes, desires d/c home today Objective Vital Signs/I&O: Vital Signs 09/27/18 08:00 09/27/18 20:00 Temperature 97.5 F L 98.3 F Pulse Rate 75 72 Respiratory Rate 18 18 Blood Pressure 129/85 140/80 Result Diagrams: 09/25/18 17:35 09/25/18 17:35 Objective Remarks: GENERAL: Well-nourished, well-developed patient. CARDIOVASCULAR: Regular rate and rhythm without murmurs, gallops, or rubs. RESPIRATORY: Breath sounds equal bilaterally. No accessory muscle use. ABDOMEN/GI: Abdomen soft, non-tender. Fundus: Firm, non-tender at umbilicus. GENITOURINARY: Light to moderate bleeding. EXTREMITIES: No cyanosis or edema, non-tender, without signs of DVT. Medications and IVs: Active Medications Acetaminophen (Tylenol) 650 mg PO Q4H PRN PRN Reason: PAIN SCALE 1 TO 2 Last Admin: 09/28/18 03:30 Dose: 650 mg Al Hydroxide/Mg Hydroxide (Milk Of Magnesia Liq) 30 ml PO Q12H PRN PRN Reason: Mild Constipation Benzocaine (Americaine 20% Top [place]) 1 spray TOPICAL Q4H PRN PRN Reason: For Perineum Discomfort Bisacodyl (Dulcolax Supp) 10 mg RECTAL DAILY PRN PRN Reason: SEVERE CONSITIPATION Calcium Gluconate (Calcium Gluconate Inj) 1 gm IV.PUSH PRN PRN PRN Reason: Magnesium toxicity Citric Acid/Sodium Citrate (Sodium Citrate/Citric Acid Liq) 30 ml PO GEOPHYSICAL MANAGER [facility] Stop: 09/29/18 18:29 Fentanyl Citrate (Fentanyl Inj) 50 mcg IV.PUSH Q1H PRN PRN Reason: Pain Scale 3 - 5 Fentanyl Citrate (Fentanyl Inj) 100 mcg IV.PUSH Q1H PRN PRN Reason: PAIN SCALE 6 TO 10 Last Admin: 09/26/18 03:10 Dose: 100 mcg Lactated Ringer's (Lr 1000 Ml Inj) 1,000 mls @ 3,000 mls/hr IV.SIG UNSCH PRN PRN Reason: compromise or epidural Last Admin: 09/26/18 12:52 Dose: 3,000 mls/hr Sodium Chloride (Ns Inj) 500 mls @ 1,000 mls/hr IV.SIG UNSCH PRN PRN Reason: SEE LABEL COMMENTS Sodium Chloride (Ns Inj) 1,000 mls @ 100 mls/hr IV.CONT .Q10H PRN PRN Reason: SEE LABEL COMMENTS Lactated Ringer's (Lr 1000 Ml Inj) 1,000 mls @ 125 mls/hr IV.SIG .Q8H [facility] Last Admin: 09/26/18 06:28 Dose: 125 mls/hr Fentanyl/Bupivacaine/Sodium Chlor (Fentanyl 2 Mcg-Bupiv 0.125% Epi) 150 mls @ 12 mls/hr EPIDURAL PRN PRN PRN Reason: for Labor Pain Last Admin: 09/26/18 12:53 Dose: 12 mls/hr Oxytocin (Pitocin 30 Units/Ns 500 Ml Premix) 30 units in 500 mls @ 2 mls/hr IV.SIG TITRATE PRN; Protocol PRN Reason: For induction of labor Last Admin: 09/26/18 12:52 Dose: 2 milliunit/min, 2 mls/hr Oxytocin (Pitocin 30 Units/Ns 500 Ml Premix) 30 units in 500 mls @ 100 mls/hr IV.CONT UNSCH PRN PRN Reason: Heavy bleeding Ibuprofen (Motrin) 800 mg PO Q8H PRN PRN Reason: For Cramping Last Admin: 09/28/18 03:30 Dose: 800 mg Lactulose (Lactulose Liq) 30 ml PO DAILY PRN PRN Reason: SEVERE CONSITIPATION Lidocaine HCl (Xylocaine 1% Inj) 0.1 ml I-DERMAL PRN PRN PRN Reason: For IV start Stop: 09/28/18 18:19 Mineral Oil (Muri-Lube Oil) 10 ml TOPICAL PRN PRN PRN Reason: PRN perineal massage Naloxone HCl (Narcan Inj) 0.1 mg IV.PUSH Q2M PRN PRN Reason: for opiate reversal Naloxone HCl (Narcan Inj) 0.1 mg IV.PUSH Q2M PRN PRN Reason: for opiate reversal Ondansetron HCl (Zofran Inj) 4 mg IV.PUSH Q6H PRN PRN Reason: NAUSEA OR VOMITING Ondansetron HCl (Zofran Odt) 4 mg PO Q6H PRN PRN Reason: NAUSEA OR VOMITING Pantoprazole Sodium (Protonix) 40 mg PO DAILY [facility] Last Admin: 09/27/18 08:23 Dose: 40 mg Senna/Docusate Sodium (Cynthia-Colace) 1 tab PO BID [facility] Last Admin: 09/28/18 03:27 Dose: Not Given Sennosides (Senokot) 17.2 mg PO Q12H PRN PRN Reason: Moderate Constipation Sertraline HCl (Zoloft) 100 mg PO DAILY [facility] Last Admin: 09/27/18 08:23 Dose: 100 mg Sodium Chloride (Ns Flush) 2 ml IV.FLUSH BID [facility] Last Admin: 09/28/18 03:27 Dose: Not Given Sodium Chloride (Ns Flush) 2 ml IV.FLUSH PRN PRN PRN Reason: FLUSH AFTER USING IV ACCESS Sodium Chloride (Ns Flush) 2 ml IV.FLUSH BID [facility] Last Admin: 09/28/18 03:27 Dose: Not Given Sodium Chloride (Ns Flush) 2 ml IV.FLUSH PRN PRN PRN Reason: FLUSH AFTER USING IV ACCESS Witch Megan/Glycerin (Tucks Pads) 1 applicatio RECTAL QID PRN PRN Reason: HEMORRHOIDS Last Admin: 09/27/18 08:24 Dose: 1 applicatio Zolpidem Tartrate (Ambien) 5 mg PO HS PRN PRN Reason: SLEEP Assessment and Plan - Plan 38-year-old s/p at 37 weeks and 6 days was IOL for oligohydramnios 1. PPD #2: AF, VSS, ready for d/c home, discussed precautions expectations and follow-up. -Female 2. Anxiety: Controlled with sertraline, continue home meds
[2018-09-28] MEDS: Sertraline 100 MG Tablet PO SCH (11:54)
== END 2018-09-28 14:38 | disposition home or self-care (01) | DRG 806 ==
LOC: H2E 17:11 → H1EA 09-26 17:09
PROVIDERS: ADMIT Obstetrics & Gynecology; ATTEND Obstetrics & Gynecology
CPT/HCPCS: 59025; 80053; 81001; 82570; 84155; 84157; 85025; 87081; 87150; 90715; G0481; G0483; J2590; J3010; J3105; J7120